=== PATIENT | male | born 1975 | race Hispanic/Latino ===

== ENCOUNTER 2018-07-24 10:59 | Inpatient (IN) | payer SELFPAY ==
[2018-07-24] MEDS ORDERED: NA CHLORIDE 0.9% 1,000 ML ONE ×2 (12:22→14:54)
[2018-07-24 12:29] LABS: Absolute Lymphocytes (CBC) 1.2 K/uL (0.7-4.9); Absolute Monocytes 0.6 K/uL (0.1-1.3); Absolute Neutrophil 4.9 K/uL (1.8-8.0); Basophils % 0.2 % (0-1.3); Eosinophils % 0.5 % (0-4.4); Hematocrit 45.6 % (39.6-49.0); Lymphocytes % 17.6 % (15.3-44.8); MPV 9.7 fL (7.6-11.3); Monocytes % 8.5 % (3.3-12.3); RBC Red Blood Cell Count 5.35 M/uL (4.33-5.43)
[2018-07-24 12:46] LABS: Potassium 3.4 mmol/L (3.5-5.1)
[2018-07-24 13:06] LABS: Arterial Blood Carboxyhemoglob 1.6 % (0-1.5); Blood Gas Oxyhemoglobin 94.5 % (94-97); Blood O2 Saturation 96.7 % (92-98.5)
--- NOTE | 2018-07-24 13:09 | EDPHYS ---
Physician Documentation [facility] Name: Sammy Kirkland Age: 42 yrs Sex: Male : 1975 Arrival Date: 07/24/2018 Time: 11:03 Bed 8 Private MD: ED Physician Manohar Young HPI: 07/24 14:08 This 42 yrs old Male presents to ER via Ambulatory with complaints of High gs Blood Pressure, High Blood Sugar. 14:08 The patient has elevated blood pressure and discovered this at home. Onset: The gs symptoms/episode began/occurred 1 month(s) ago. Modifying factors: The symptoms are aggravated by activity, The symptoms are alleviated by prescription meds. Associated signs and symptoms: Pertinent positives: palpitation and blood glucose high, stopped drinking about 1 week ago, Pertinent negatives: chest pain, dyspnea. Severity of symptoms: At its worst the blood pressure was severe, in the emergency department the blood pressure is improved, mildly. The patient has experienced similar episodes in the past, several times. The patient has been recently seen by a physician: the patient's primary care provider, 5 day(s) ago. Historical: - Allergies: 11:18 No Known Allergies; ss - PMHx: 11:18 Hypertension; Diabetes - NIDDM; ss - PSHx: 11:18 Appendectomy; ss - Immunization history:: Adult Immunizations up to date. - Social history:: Smoking status: Patient/guardian denies using tobacco. - Ebola Screening: : Patient denies exposure to infectious person Patient denies travel to an Ebola-affected area in the 21 days before illness onset. ROS: 14:08 All other systems are negative. gs Exam: 14:08 Head/Face: Normocephalic, atraumatic. Eyes: Pupils equal round and reactive to light, gs extra-ocular motions intact. Lids and lashes normal. Conjunctiva and sclera are non-icteric and not injected. Cornea within normal limits. Periorbital areas with no swelling, redness, or edema. ENT: Nares patent. No nasal discharge, no septal abnormalities noted. Tympanic membranes are normal and external auditory canals are clear. Oropharynx with no redness, swelling, or masses, exudates, or evidence of obstruction, uvula midline. Mucous membranes moist. Neck: Trachea midline, no thyromegaly or masses palpated, and no cervical lymphadenopathy. Supple, full range of motion without nuchal rigidity, or vertebral point tenderness. No Meningismus. Chest/axilla: Normal chest wall appearance and motion. Nontender with no deformity. No lesions are appreciated. Cardiovascular: Regular rate and rhythm with a normal S1 and S2. No gallops, murmurs, or rubs. Normal PMI, no JVD. No pulse deficits. Respiratory: Lungs have equal breath sounds bilaterally, clear to auscultation and percussion. No rales, rhonchi or wheezes noted. No increased work of breathing, no retractions or nasal flaring. Abdomen/GI: Soft, non-tender, with normal bowel sounds. No distension or tympany. No guarding or rebound. No evidence of tenderness throughout. Back: No spinal tenderness. No costovertebral tenderness. Full range of motion. Skin: Warm, dry with normal turgor. Normal color with no rashes, no lesions, and no evidence of cellulitis. MS/ Extremity: Pulses equal, no cyanosis. Neurovascular intact. Full, normal range of motion. Neuro: Awake and alert, GCS 15, oriented to person, place, time, and situation. Cranial nerves II-XII grossly intact. Motor strength 5/5 in all extremities. Sensory grossly intact. Cerebellar exam normal. Normal gait. 14:08 Constitutional: The patient appears alert, awake. 14:15 ECG was reviewed by the Attending Physician. Vital Signs: 11:18 BP 159 / 92; Pulse 96; Resp 20; Temp 98.4(O); Pulse Ox 99% on R/A; Weight 105.69 kg; ss Height 5 ft. 0 in. (152.40 cm); Pain 8/10; 12:00 BP 146 / 90; Pulse 84; Resp 16 S; Pulse Ox 97% on R/A; aa5 13:00 BP 144 / 95; Pulse 74; Resp 16 S; Pulse Ox 100% on R/A; aa5 14:10 BP 154 / 99; Pulse 83; Resp 18 S; Temp 98.0(TE); Pulse Ox 100% on R/A; aa5 15:20 BP 162 / 93; Pulse 83; Resp 18 S; Pulse Ox 100% on R/A; aa5 17:15 BP 143 / 83; Pulse 73; Resp 16 S; Temp 98.0(TE); Pulse Ox 98% on R/A; Pain 0/10; aa5 11:18 Body Mass Index 45.50 (105.69 kg, 152.40 cm) ss MDM: 12:03 Patient medically screened. gs 14:15 Differential diagnosis: hypertensive crisis, Malignant HTN, dka,aka,hyperglycemia. Data gs reviewed: vital signs, nurses notes, lab test result(s), EKG, radiologic studies. Counseling: I had a detailed discussion with the patient and/or guardian regarding: the historical points, exam findings, and any diagnostic results supporting the discharge/admit diagnosis, lab results, the need for further work-up and treatment in the hospital. Response to treatment: the patient's symptoms have mildly improved after treatment. 07/24 12:04 Order name: CBC with Diff; Complete Time: 14:08 07/24 12:04 Order name: Basic Metabolic Panel; Complete Time: 14:08 07/24 12:50 Order name: Urine Microscopic Only; Complete Time: 14:08 07/24 12:50 Order name: ABG; Complete Time: 14:08 07/24 13:50 Order name: Glucose, Ancillary Testing; Complete Time: 14:08 EDMS 07/24 13:51 Order name: Glucose, Ancillary Testing; Complete Time: 14:08 EDWA 07/24 11:25 Order name: EKG; Complete Time: 11:25 07/24 11:25 Order name: EKG - Nurse/Tech; Complete Time: 11:25 07/24 15:03 Order name: Glucose, Ancillary Testing; Complete Time: 15:20 EDMS 07/24 15:03 Order name: Glucose, Ancillary Testing; Complete Time: 15:20 EDMS 07/24 15:51 Order name: Glucose, Ancillary Testing; Complete Time: 16:05 EDMS 07/24 11:25 Order name: Glucose Level; Complete Time: 11:25 07/24 12:50 Order name: Urine Dipstick-Ancillary (obtain specimen); Complete Time: 13:40 gs EC:15 Rate is 84 beats/min. Rhythm is regular. NV interval is normal. QRS interval is gs prolonged. No Q waves. T waves are Flattened. No ST changes noted. Clinical impression: NSR w/ Non-specific ST/T Changes and Abnormal EKG without significant change. Interpreted by me. Administered Medications: 12:17 Drug: NS 0.9% 1000 ml Route: IV; Rate: 1 bolus; Site: right antecubital; aa5 14:00 Follow up: IV Status: Completed infusion; IV Intake: 1000ml aa5 14:00 Drug: Insulin Drip - (Insulin Regular Human 100 units, NS 0.9% 100 ml) {Co-Signature: aa5 iw (Savannah Celeste RN).} {Note: started at 5 units/hr per MD .} Route: IV; Rate: calculated rate; Site: right antecubital; 15:00 Follow up: Response: No adverse reaction aa5 17:20 Follow up: IV Status: Infusion continued upon admission aa5 14:46 Drug: NS 0.9% 1000 ml Route: IV; Rate: 1000 ml; Site: right antecubital; aa5 15:30 Follow up: IV Status: Completed infusion; IV Intake: 1000ml aa5 Point of Care Testing: Blood Glucose: 11:24 Blood Glucose: 403 mg/dL; ss 13:47 Blood Glucose: 385 mg/dL; em1 14:31 Blood Glucose: 326 mg/dL; aa5 14:58 Blood Glucose: 307 mg/dL; bp 15:48 Blood Glucose: 258 mg/dL; aa5 16:42 Blood Glucose: 256 mg/dL; aa5 Ranges: Critical Glucose Levels:Adult <50 mg/dl or >400 mg/dl <40 mg/dl or >180 mg/dl Disposition: 07/24/18 13:09 Hospitalization ordered by Mae Garcia for Inpatient Admission. Preliminary diagnosis is Type 1 diabetes mellitus with ketoacidosis. - Bed requested for Intensive Care Unit. - Status is Inpatient Admission. aa5 - Condition is Stable. - Problem is new. - Symptoms have improved. UTI on Admission? No Critical care time excluding procedures: 14:15 Critical care time: Bedside Care: 10 minutes, Consultation: 10 minutes, Family gs Intervention: 10 minutes. Total time: 30 minutes Signatures: Dispatcher [employer] EDGi Simental Audri, RN RN aa5 Karen Connors RN RN ss Starr, Gregory, MD MD gs Irene Williams RN iw Corrections: (The following items were deleted from the chart) 14:43 13:09 Hospitalization Ordered by Mae Garcia MD for Inpatient Admission. Preliminary bd diagnosis is Type 1 diabetes mellitus with ketoacidosis. Bed requested for Telemetry/MedSurg (Inpatient). Status is Inpatient Admission. Condition is Stable. Problem is new. Symptoms have improved. UTI on Admission? No. gs 17:29 14:43 07/24/2018 13:09 Hospitalization Ordered by Mae Garcia MD for Inpatient aa5 Admission. Preliminary diagnosis is Type 1 diabetes mellitus with ketoacidosis. Bed requested for Intensive Care Unit. Status is Inpatient Admission. Condition is Stable. Problem is new. Symptoms have improved. UTI on Admission? No. bd
--- NOTE | 2018-07-24 13:09 | ER ---
Nurse's Notes [facility] Name: Sammy Kirkland Age: 42 yrs Sex: Male : 1975 Arrival Date: 07/24/2018 Time: 11:03 Bed 8 Private MD: Diagnosis: Type 1 diabetes mellitus with ketoacidosis Presentation: 07/24 11:14 Presenting complaint: Patient states: generalized weakness and weight loss x 1.5 weeks, ss abd pain and heart pounding with exertion that began today. Pt was seen by a physician 4 days ago and was diagnosed with diabetes and hypertension. Pt reports he has not taken any of his newly prescribed medications because he just got them filled before coming to the ER. Also c/o excessive thirst. Transition of care: patient was not received from another setting of care. Onset of symptoms is unknown. Risk Assessment: Do you want to hurt yourself or someone else? Patient reports no desire to harm self or others. Initial Sepsis Screen: Does the patient meet any 2 criteria? No. Patient's initial sepsis screen is negative. Does the patient have a suspected source of infection? No. Patient's initial sepsis screen is negative. Care prior to arrival: None. 11:14 Method Of Arrival: Ambulatory ss 11:14 Acuity: RENEE 2 ss Historical: - Allergies: 11:18 No Known Allergies; ss - PMHx: 11:18 Hypertension; Diabetes - NIDDM; ss - PSHx: 11:18 Appendectomy; ss - Immunization history:: Adult Immunizations up to date. - Social history:: Smoking status: Patient/guardian denies using tobacco. - Ebola Screening: : Patient denies exposure to infectious person Patient denies travel to an Ebola-affected area in the 21 days before illness onset. Screenin:00 Abuse screen: Denies threats or abuse. Nutritional screening: No deficits noted. aa5 Tuberculosis screening: No symptoms or risk factors identified. Fall Risk None identified. Assessment: 12:00 General: Appears comfortable, Behavior is calm, cooperative. Pain: Denies pain. Neuro: aa5 Level of Consciousness is awake, alert, obeys commands, Oriented to person, place, time, situation, Advanced Solutions Architect are equal bilaterally Moves all extremities. Speech is normal, Facial symmetry appears normal, Pupils are PERRLA, Reports generalized weakness. . Cardiovascular: Heart tones S1 S2 present Rhythm is regular. Respiratory: Airway is patent Respiratory effort is even, unlabored, Respiratory pattern is regular, symmetrical, Breath sounds are clear bilaterally. GI: Abdomen is round Bowel sounds present X 4 quads. Abd is soft and non tender X 4 quads. Patient currently denies abdominal pain, nausea, vomiting. : No signs and/or symptoms were reported regarding the genitourinary system. EENT: Oral mucosa is moist. Derm: Skin is dry, Skin is normal, Skin temperature is warm. Musculoskeletal: Range of motion: intact in all extremities. 12:15 Reassessment: Pt notified of wait time for lab results. . aa5 14:00 Reassessment: Patient and/or family updated on plan of care and expected duration. Pain aa5 level reassessed. Awaiting room assignment . Neuro: Level of Consciousness is awake, alert, obeys commands, Oriented to person, place, time, situation. Respiratory: Airway is patent Respiratory effort is even, unlabored, Respiratory pattern is regular, symmetrical. Derm: Skin is dry, Skin is normal, Skin temperature is warm. 14:30 Reassessment: Dr. Garcia (Hospitalist) at bedside. . aa5 15:20 Reassessment: Patient and/or family updated on plan of care and expected duration. Pain aa5 level reassessed. Patient denies pain at this time. 15:45 Reassessment: Unsuccessful attempt to call report to ICU. aa5 16:40 Reassessment: Patient and/or family updated on plan of care and expected duration. Pain aa5 level reassessed. Neuro: Level of Consciousness is awake, alert, obeys commands, Oriented to person, place, time, situation. Respiratory: Airway is patent Respiratory effort is even, unlabored, Respiratory pattern is regular, symmetrical. Derm: Skin is dry, Skin is normal, Skin temperature is warm. 17:20 Neuro: Level of Consciousness is awake, alert, obeys commands, Oriented to person, aa5 place, time, situation. Respiratory: Airway is patent Respiratory effort is even, unlabored, Respiratory pattern is regular, symmetrical. Derm: Skin is dry, Skin is normal, Skin temperature is warm. Vital Signs: 11:18 BP 159 / 92; Pulse 96; Resp 20; Temp 98.4(O); Pulse Ox 99% on R/A; Weight 105.69 kg; ss Height 5 ft. 0 in. (152.40 cm); Pain 8/10; 12:00 BP 146 / 90; Pulse 84; Resp 16 S; Pulse Ox 97% on R/A; aa5 13:00 BP 144 / 95; Pulse 74; Resp 16 S; Pulse Ox 100% on R/A; aa5 14:10 BP 154 / 99; Pulse 83; Resp 18 S; Temp 98.0(TE); Pulse Ox 100% on R/A; aa5 15:20 BP 162 / 93; Pulse 83; Resp 18 S; Pulse Ox 100% on R/A; aa5 17:15 BP 143 / 83; Pulse 73; Resp 16 S; Temp 98.0(TE); Pulse Ox 98% on R/A; Pain 0/10; aa5 11:18 Body Mass Index 45.50 (105.69 kg, 152.40 cm) ED Course: 11:03 Patient arrived in ED. mr 11:17 Triage completed. ss 11:18 Arm band placed on right wrist. ss 11:23 EKG done, by bio medical technician. reviewed by Vince Richey MD. at1 11:52 Manohar Young MD is Attending Physician. gs 12:00 Patient has correct armband on for positive identification. Placed in gown. Bed in low aa5 position. Call light in reach. Side rails up X2. auto self service station attendant on. Pulse ox on. NIBP on. 12:06 Yeni Atikns, CORINA is Primary Nurse. aa5 12:15 Initial lab(s) drawn, by ky, sent to lab. Inserted saline lock: 20 gauge in right aa5 antecubital area, using aseptic technique. Blood collected. 12:15 No provider procedures requiring assistance completed. aa5 13:09 Mae Garcia MD is Hospitalizing Provider. gs 17:20 Patient admitted, IV remains in place. aa5 Administered Medications: 12:17 Drug: NS 0.9% 1000 ml Route: IV; Rate: 1 bolus; Site: right antecubital; aa5 14:00 Follow up: IV Status: Completed infusion; IV Intake: 1000ml aa5 14:00 Drug: Insulin Drip - (Insulin Regular Human 100 units, NS 0.9% 100 ml) {Co-Signature: aa5 iw (Savannah Celeste RN).} {Note: started at 5 units/hr per MD .} Route: IV; Rate: calculated rate; Site: right antecubital; 15:00 Follow up: Response: No adverse reaction aa5 17:20 Follow up: IV Status: Infusion continued upon admission aa5 14:46 Drug: NS 0.9% 1000 ml Route: IV; Rate: 1000 ml; Site: right antecubital; aa5 15:30 Follow up: IV Status: Completed infusion; IV Intake: 1000ml aa5 Point of Care Testing: Blood Glucose: 11:24 Blood Glucose: 403 mg/dL; ss 13:47 Blood Glucose: 385 mg/dL; em1 14:31 Blood Glucose: 326 mg/dL; aa5 14:58 Blood Glucose: 307 mg/dL; bp 15:48 Blood Glucose: 258 mg/dL; aa5 16:42 Blood Glucose: 256 mg/dL; aa5 Ranges: Intake: 14:00 IV: 1000ml; Total: 1000ml. aa5 15:30 IV: 1000ml; Total: 2000ml. aa5 Outcome: 13:09 Decision to Hospitalize by Provider. 17:20 Admitted to ICU accompanied by nurse, accompanied by tech, via stretcher, on monitor, aa5 with chart, Report called to CORINA [place] 17:20 Condition: stable 17:20 Instructed on the need for admit, Demonstrated understanding of instructions. 17:21 Patient left the ED. aa5 Signatures: Zeny Shaw, Rashawn em1 Yeni Atkins, RN RN aa5 Karen Connors RN RN Skylar Sanchez, mold yarn supervisor EKG Tat1 Manohar Young MD MD Carlos Amin RN RN bp Irene Williams RN iw Corrections: (The following items were deleted from the chart) 16:46 14:00 IV Status: Completed infusion aa5 aa5 17:31 17:29 Patient left the ED. aa5 aa5
[2018-07-24] MEDS: INSULIN -REGULAR HUMAN 100 UNIT in NA CHLORIDE 0.9% 100 ML IV ONE (13:30)
[2018-07-24 13:54] LABS: Urine Bacteria <20 /HPF (NONE SEEN); Urine Culture Reflex Order NOT NEEDED
--- NOTE | 2018-07-24 15:19 | EKG ---
Test Date: 2018-07-24 Test Time: 11:23:01 Lining Printer: CHERIE MEASUREMENT RESULTS: Intervals: Rate: 84 FL: 150 QRSD: 104 QT: 378 QTc: 446 Cost: P: 53 FL: 150 QRS: 47 T: 1 INTERPRETIVE STATEMENTS: Normal sinus rhythm Normal ECG No previous ECG available for comparison Electronically Signed On 07-24-18 15:18:16 CDT by Doroteo Mead
[2018-07-24] MEDS ORDERED: NA CHLORIDE 0.9% 1,000 ML IV ONE (17:05)
[2018-07-24] MEDS: NACHLORIDE 0.45% 1,000 ML IV SCH (17:05)
[2018-07-24] MEDS: FOLIC ACID 5 MG/ML VIAL IVP SCH (17:05)
[2018-07-24] MEDS ORDERED: ONDANSETRON 4 MG/2 ML VIAL IV PRN (17:05)
[2018-07-24] MEDS ORDERED: LORazepam 2 MG/ML VIAL IV PRN (17:05)
[2018-07-24] MEDS: D5 0.45 NS 1,000 ML IV SCH (18:15)
[2018-07-24] MEDS: THIAMINE 200 MG/2 ML INJ IVP SCH (18:19)
[2018-07-24 18:23] LABS: BUN Blood Urea Nitrogen 9 mg/dL (7-18); Bicarbonate 15 mmol/L (21-32); Glucose Level 221 mg/dL (74-106); Magnesium 2.1 mg/dL (1.8-2.4); Phosphorus 1.5 mg/dL (2.5-4.9); Sodium Level 138 mmol/L (136-145)
[2018-07-24 18:26] LABS: Potassium 2.9 mmol/L (3.5-5.1)
[2018-07-24 19:26] LABS: Urine Appearance CLEAR; Urine Bilirubin NEGATIVE (NEG); Urine Blood 1+ (NEG); Urine Color YELLOW; Urine Glucose 3+ (NEG); Urine Protein 1+ (NEG); Urine Urobilinogen 0.2 mg/dL (0.2-1.0); Urine pH 5.5 (5.0-7.0)
[2018-07-24 19:31] LABS: Urine Microscopic Reflex ORDER UMIC
[2018-07-24 19:41] LABS: Urine Bacteria <20 /HPF (NONE SEEN); Urine Culture Reflex Order NOT NEEDED; Urine Mucus 1+ /HPF (NONE SEEN); Urine RBC <5 /HPF (NONE SEEN)
[2018-07-24] MEDS ORDERED: POTASSIUM PHOS IN 0.9 % NACL 15 MMOL/250 ML BAG IV ONE (19:48)
--- NOTE | 2018-07-24 20:14 | HP ---
Date of Admission: 07/24/2018 Chief Complaint: Intractable nausea, vomiting, abdominal discomfort, elevated blood glucose levels. History Of Present Illness: The patient is a 42-year-old male with recently diagnosed diabetes, hype rtension, and hyperlipidemia, morbid obesity, who was in his usual state of health until several days prior to admission when the patient went to clinic in [place] and was found to be hypertensive, diab etic and have elevated cholesterol. The patient was given medications, however, there was a mixup at the pharmacy. His medications were then corrected, however, patient has not been able to take any o f his medications. He was started on glipizide, amlodipine and lisinopril. The patient reports weig ht loss of 20 pounds over the past 2 weeks. The patient is also a heavy drinker and stopped drinking approximately 10 days ago. He has been having intractable nausea, vomiting, unable to tolerate any p.o. intake, lightheadedness, polyuria, polydipsia. The patient went to the pharmacy today to pick u p his medications and was told to go to the ER due to his symptoms. In the ER, his blood glucose lev el was 403, his creatinine was elevated at 1.3, white count was normal. The patient's ABG showed aci dosis with a pH of 7.22, pCO2 was 22. His anion gap was elevated at 21. The patient was thought to be in alcohol acute acidosis. He was started on IV insulin and referred for admission. He was given 1 L bolus normal saline. When seen in the ER, he was awake, alert, oriented x3, in some mild distre ss. Past Medical History: Recently diagnosed diabetes, hypertension, hyperlipidemia, morbid obesity. Surgical History: Appendectomy. Allergies: NO KNOWN DRUG ALLERGIES. Social History: The patient denies any tobacco use. Reports heavy alcohol use, used to drink three 16 ounce beer cans every day and on the weekends would drink an 18 pack. The patient has been drinki ng for several years at this level. He stated he stopped drinking approximately 10 days ago, went th rough some withdrawal symptoms. The patient works in construction. Family History: Positive for diabetes. Review of Systems: Ten-point system reviewed, negative except as per HPI. Physical Examination: Vital Signs: Temperature 98.4, blood pressure 129/92, pulse 96, respirations 20, O2 99% on room air. BMI 45. HEENT: Normocephalic, atraumatic. PERRLA. EOMI. Dry mucous membranes. Oropharynx is clear. Poor dentition. Conjunctivae anicteric. Neck: Supple. No JVD. Trachea midline. CV: S1, S2. Regular rate and rhythm. Peripheral pulses present. Respiratory: Moving air well bilaterally. No wheezing or stridor. No use of accessory muscles. Gastrointestinal: Abdomen is soft, nontender, nondistended. Positive bowel sounds. No guarding or rigidity. Extremities: No clubbing, cyanosis, or edema. No calf tenderness. Neuro: Cranial nerves 2-12 intact grossly. No focal neurological deficit. Speech is normal. Skin: Normal skin turgor. No rashes. Psych: Mood is anxious. Affect is congruent with mood. Insight and judgment are fair. Laboratory Data: Sodium 133, potassium 3.4, chloride 101, CO2 11, BUN 12, creatinine 1.39, glucose 4 43, calcium 8.5. WBC 6.7, H and H 16.1 and 45.6, platelets 247. ABG; pH 7.22, pCO2 22.9, pO2 97.5, bicarb 99.1. UA is pending. Microscopy shows 5-10 rbc's, wbc less than 5, less than 20 bacteria. E KG shows normal sinus rhythm rate of 84, no previous EKG for comparison. Assessment: A 42-year-old male with: 1.Alcoholic ketoacidosis. We will continue on IV insulin. We will give 1 L of normal saline bolus and start on maintenance IV fluids after that. The patient has been counseled. 2.Diabetes mellitus type 2, [id number] with hyperglycemia, currently on IV insulin. [facility] blood glucose levels. The patient has been counseled. The patient will need diabetic education. 3.Essential hypertension, not well controlled. We will start on IV medications until the patient is able to tolerate p.o. intake. 4.Non-intractable nausea, vomiting. Continue antiemetics. 5.Mixed hyperlipidemia. We will check lipid panel. We will resume statin once tolerating p.o. 6.Morbid obesity. 7.Deep vein thrombosis prophylaxis with Lovenox. 8.Acute kidney injury. We will continue with IV fluids and monitor kidney function. Plan: Admit patient to ICU, place as inpatient. Length of stay greater than 2 midnights. MICHAEL Voice ID: [id number]
[2018-07-24 21:41] LABS: Potassium 2.6 mmol/L (3.5-5.1)
[2018-07-25] MEDS: NACHLORIDE 0.45% 1,000 ML IV SCH ×2 (01:05→09:05)
[2018-07-25] MEDS ORDERED: NA CHLORIDE 0.9% 100 ML ONE (01:27)
[2018-07-25] MEDS ORDERED: INSULIN -REGULAR HUMAN 50 UNIT/0.5 ML ML ONE (01:27)
[2018-07-25 01:47] LABS: Potassium 2.5 mmol/L (3.5-5.1)
[2018-07-25] MEDS: KCL 20 MEQ/100 mL IVPB 20 MEQ/100 ML BAG IV SCH ×2 (02:15→04:00)
[2018-07-25] MEDS: D5 0.45 NS 1,000 ML IV SCH ×2 (02:55→08:16)
[2018-07-25] MEDS: INSULIN -REGULAR HUMAN 100 UNIT in NA CHLORIDE 0.9% 100 ML IV ONE (02:59)
[2018-07-25 05:49] LABS: Absolute Lymphocytes (CBC) 1.6 K/uL (0.7-4.9); Absolute Monocytes 0.8 K/uL (0.1-1.3); Absolute Neutrophil 4.5 K/uL (1.8-8.0); Basophils % 0.3 % (0-1.3); Eosinophils % 2.7 % (0-4.4); Hematocrit 41.9 % (39.6-49.0); Lymphocytes % 22.3 % (15.3-44.8); MPV 9.7 fL (7.6-11.3); Monocytes % 11.1 % (3.3-12.3); RBC Red Blood Cell Count 4.98 M/uL (4.33-5.43)
[2018-07-25 08:37] LABS: BUN Blood Urea Nitrogen 8 mg/dL (7-18); Bicarbonate 22 mmol/L (21-32); Glucose Level 170 mg/dL (74-106); Phosphorus 2.3 mg/dL (2.5-4.9); Potassium 3.2 mmol/L (3.5-5.1); Sodium Level 139 mmol/L (136-145)
[2018-07-25] MEDS ORDERED: PNEUMOCOCCAL VACCINE 0.5 ML IMVAC ONE (09:00)
[2018-07-25] MEDS ORDERED: POTASSIUM PHOS IN 0.9 % NACL 15 MMOL/250 ML BAG IV ONE (09:09)
[2018-07-25] MEDS: THIAMINE 200 MG/2 ML INJ IVP SCH (09:22)
[2018-07-25] MEDS ORDERED: INSULIN GLARGINE 100 UNITS/ML SQ ONE ×2 (12:00→18:00)
[2018-07-25] MEDS: FOLIC ACID 5 MG/ML VIAL IVP SCH (12:47)
[2018-07-25] MEDS ORDERED: POTASSIUM CL SA 10 MEQ TAB PO ONE (13:14)
--- NOTE | 2018-07-25 15:25 | P.PN ---
Subjective Date of Service: 07/25/18 Subjective: Improving Patient seen and examined at bedside. No family at bedside. Chart reviewed and case discussed with nursing staff. Patient reports improvement. Gap has now closed at 10. He is currently on 6 units insulin drip, D5 and half fluid. His blood sugars have improved to 200s. He reports clinical improvement. As any nausea or vomiting at this time, denies any chest pain, shortness of breath, headache, vision changes, dizziness , other GI or complaints. Review of Systems 10-point ROS is otherwise unremarkable Physical Examination - Vital Signs Temperature: 97.1 F Blood Pressure: 117/75 Pulse: 78 Respirations: 23 Pulse Ox (%): 100 - Physical Exam General: Alert, In no apparent distress, Oriented x3 HEENT: Atraumatic, PERRLA, EOMI Neck: Supple, JVD not distended Respiratory: Clear to auscultation bilaterally, Normal air movement Cardiovascular: Regular rate/rhythm, Normal S1 S2 Gastrointestinal: Normal bowel sounds, No tenderness Musculoskeletal: No tenderness Integumentary: No rashes Neurological: Normal speech, Normal tone, Normal affect Lymphatics: No axilla or inguinal lymphadenopathy Assessment And Plan - Current Problems (Diagnosis) (1) Alcoholic ketoacidosis Current Visit: Yes Status: Acute Plan: Transition patient from IV insulin 2 subcutaneous insulin. We will start Lantus 10 units with moderate sliding scale insulin. After 1 hr, DC insulin and IV fluids. Start on 1800 diabetic diet. We will continue to monitor blood glucose levels. (2) Diabetes mellitus Current Visit: Yes Status: Acute Plan: Continue plan as above. Continue to monitor blood glucose level. He will need diabetic education in resources prior to discharge. Qualifiers: Diabetes mellitus type: type 2 Diabetes mellitus chcf insulin use: without chcf use Diabetes mellitus complication status: with hyperglycemia Qualified Code(s): E11.65 - Type 2 diabetes mellitus with hyperglycemia (3) Nausea & vomiting Current Visit: Yes Status: Acute Plan: We will continue anti emetics as needed. Qualifiers: Vomiting type: unspecified Vomiting Intractability: non-intractable Qualified Code(s): R11.2 - Nausea with vomiting, unspecified (4) HTN (hypertension) Current Visit: Yes Status: Chronic Plan: Better control. We will add oral blood pressure medications once he is stable and tolerate p.o. Qualifiers: Hypertension type: essential hypertension Qualified Code(s): I10 - Essential (primary) hypertension (5) Morbid obesity with BMI of 40.0-44.9, adult Current Visit: Yes Status: Chronic (6) Hyperlipidemia Current Visit: Yes Status: Acute Plan: Continue statin Qualifiers: Hyperlipidemia type: mixed hyperlipidemia Qualified Code(s): E78.2 - Mixed hyperlipidemia (7) JULIANE (acute kidney injury) Current Visit: Yes Status: Resolved Plan: Resolved with IV fluids. Continue to monitor (8) Hypokalemia Current Visit: Yes Status: Acute Plan: Replace and monitor per protocol. - Plan DVT prophylaxis: Lovenox, encouraged ambulation GI prophylaxis: None Diet: 1800 diabetic Disposition: Continue to monitor in ICU. Transition from IV insulin, per protocol. Continue to monitor blood glucose. If stable overnight, will transfer to the floor tomorrow
[2018-07-25] MEDS: INSULIN -REGULAR HUMAN 50 UNIT/0.5 ML ML SQ SCH ×2 (16:33→20:52)
[2018-07-25 17:31] LABS: Potassium 3.1 mmol/L (3.5-5.1)
[2018-07-25] MEDS ORDERED: GLUCAGON 1 MG/VIAL IM PRN (17:51)
[2018-07-25] MEDS ORDERED: D50W 25 GM/50 ML SYRINGE IV PRN (17:51)
[2018-07-25 21:04] LABS: Potassium 3.3 mmol/L (3.5-5.1)
[2018-07-26 05:11] LABS: Absolute Lymphocytes (CBC) 1.4 K/uL (0.7-4.9); Absolute Monocytes 0.5 K/uL (0.1-1.3); Absolute Neutrophil 2.8 K/uL (1.8-8.0); Basophils % 0.2 % (0-1.3); Eosinophils % 2.8 % (0-4.4); Hematocrit 43.5 % (39.6-49.0); Lymphocytes % 29.1 % (15.3-44.8); MPV 9.8 fL (7.6-11.3); Monocytes % 10.5 % (3.3-12.3); RBC Red Blood Cell Count 5.14 M/uL (4.33-5.43)
[2018-07-26 07:44] LABS: BUN Blood Urea Nitrogen 9 mg/dL (7-18); Bicarbonate 20 mmol/L (21-32); Glucose Level 330 mg/dL (74-106); Sodium Level 138 mmol/L (136-145)
[2018-07-26] MEDS: INSULIN -REGULAR HUMAN 50 UNIT/0.5 ML ML SQ SCH ×3 (07:47→16:30)
[2018-07-26] MEDS: INSULIN GLARGINE 100 UNITS/ML SQ SCH ×2 (07:47→16:30)
[2018-07-26] MEDS ORDERED: POTASSIUM 25 MEQ EFFERV TAB PO ONE (08:42)
[2018-07-26] MEDS: FOLIC ACID 1 MG TABLET PO SCH (08:53)
[2018-07-26] MEDS: THIAMINE HCL 100 MG TABLET PO SCH (08:53)
[2018-07-26 10:47] LABS: Potassium 4.2 mmol/L (3.5-5.1)
--- NOTE | 2018-07-26 12:53 | P.PN ---
Subjective Date of Service: 07/26/18 Chief Complaint: Ketoacidosis Subjective: Tolerating diet, Improving Patient seen and examined at bedside. No family at bedside. Chart reviewed and case discussed with nursing staff. Patient reports improvement. He reports clinical improvement. Tolerating diet. Denies any nausea or vomiting at this time, denies any chest pain, shortness of breath, headache, vision changes, dizziness, other GI or complaints. Review of Systems 10-point ROS is otherwise unremarkable Physical Examination - Vital Signs Temperature: 97.7 F Blood Pressure: 123/86 Pulse: 90 Respirations: 22 Pulse Ox (%): 100 - Physical Exam General: Alert, In no apparent distress, Oriented x3 HEENT: Atraumatic, PERRLA, EOMI Neck: Supple, JVD not distended Respiratory: Clear to auscultation bilaterally, Normal air movement Cardiovascular: Regular rate/rhythm, Normal S1 S2 Gastrointestinal: Normal bowel sounds, No tenderness Musculoskeletal: No tenderness Integumentary: No rashes Neurological: Normal speech, Normal tone, Normal affect Lymphatics: No axilla or inguinal lymphadenopathy Assessment And Plan - Current Problems (Diagnosis) (1) Alcoholic ketoacidosis Current Visit: Yes Status: Acute Plan: Patient currently transition from IV insulin subcutaneous. Gap at borderline, 13. be Currently receiving Lantus 15 units twice a day. Blood sugars continue to be elevated. We will give 1 time Lantus 5 units at this time, increase Lantus to 20 units b.i.d. Repeat BMP q.4 hr We will continue to monitor blood glucose levels. (2) Diabetes mellitus Current Visit: Yes Status: Acute Plan: Continue plan as above. Continue to monitor blood glucose level. He will need diabetic education in resources prior to discharge. 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 Qualifiers: Vomiting type: unspecified Vomiting Intractability: non-intractable Qualified Code(s): R11.2 - Nausea with vomiting, unspecified (4) HTN (hypertension) Current Visit: Yes Status: Chronic Plan: Better controlled now. We will add oral blood pressure medications if needed Qualifiers: Hypertension type: essential hypertension Qualified Code(s): I10 - Essential (primary) hypertension (5) Morbid obesity with BMI of 40.0-44.9, adult Current Visit: Yes Status: Chronic (6) Hyperlipidemia Current Visit: Yes Status: Acute Plan: Continue statin Qualifiers: Hyperlipidemia type: mixed hyperlipidemia Qualified Code(s): E78.2 - Mixed hyperlipidemia (7) JULIANE (acute kidney injury) Current Visit: Yes Status: Resolved Plan: Resolved with IV fluids. Continue to monitor (8) Hypokalemia Current Visit: Yes Status: Resolved Plan: Replace and monitor per protocol. - Plan DVT prophylaxis: Lovenox, encouraged ambulation GI prophylaxis: None Diet: 1800 diabetic Disposition: Continue to monitor in ICU. Blood work recheck this afternoon. We will continue to monitor the gap as it continues to be elevated at this time.
[2018-07-26 16:03] LABS: BUN Blood Urea Nitrogen 9 mg/dL (7-18); Bicarbonate 22 mmol/L (21-32); Glucose Level 360 mg/dL (74-106); Potassium 3.5 mmol/L (3.5-5.1); Sodium Level 140 mmol/L (136-145)
[2018-07-26] MEDS ORDERED: D50W 25 GM/50 ML SYRINGE IV PRN (17:17)
[2018-07-26] MEDS ORDERED: INSULIN -REGULAR HUMAN 50 UNIT/0.5 ML ML IV SCH (17:30)
[2018-07-26] MEDS ORDERED: INSULIN -REGULAR HUMAN 100 UNIT in NA CHLORIDE 0.9% 100 ML IV SCH (17:45)
[2018-07-26] MEDS: D5.45NS W/KCL 20MEQ 1,000 ML IV SCH ×2 (18:00→22:15)
[2018-07-26] MEDS: NACHLORIDE 0.45% 1,000 ML with POTASSIUM CL 20 MEQ IV SCH ×2 (18:04)
[2018-07-26 22:27] LABS: BUN Blood Urea Nitrogen 8 mg/dL (7-18); Bicarbonate 26 mmol/L (21-32); Glucose Level 176 mg/dL (74-106); Potassium 3.1 mmol/L (3.5-5.1); Sodium Level 141 mmol/L (136-145)
[2018-07-27] MEDS ORDERED: POTASSIUM CL SA 10 MEQ TAB PO ONE ×2 (01:43→19:33)
[2018-07-27 05:12] LABS: Absolute Lymphocytes (CBC) 1.8 K/uL (0.7-4.9); Absolute Monocytes 0.7 K/uL (0.1-1.3); Absolute Neutrophil 3.3 K/uL (1.8-8.0); Basophils % 0.2 % (0-1.3); Eosinophils % 2.5 % (0-4.4); Hematocrit 42.7 % (39.6-49.0); Lymphocytes % 30.1 % (15.3-44.8); MPV 9.5 fL (7.6-11.3); Monocytes % 11.4 % (3.3-12.3)
[2018-07-27] MEDS: D5.45NS W/KCL 20MEQ 1,000 ML IV SCH ×2 (05:15→14:00)
[2018-07-27 05:28] LABS: BUN Blood Urea Nitrogen 8 mg/dL (7-18); Bicarbonate 27 mmol/L (21-32); Glucose Level 197 mg/dL (74-106); Phosphorus 3.1 mg/dL (2.5-4.9); Potassium 3.1 mmol/L (3.5-5.1); Sodium Level 141 mmol/L (136-145)
[2018-07-27] MEDS: THIAMINE HCL 100 MG TABLET PO SCH (08:32)
[2018-07-27] MEDS: FOLIC ACID 1 MG TABLET PO SCH (08:32)
[2018-07-27] MEDS ORDERED: INSULIN GLARGINE 100 UNITS/ML SQ ONE (10:17)
[2018-07-27] MEDS: INSULIN GLARGINE 100 UNITS/ML SQ SCH ×2 (12:45→21:21)
--- NOTE | 2018-07-27 12:49 | P.PN ---
Subjective Date of Service: 07/27/18 Chief Complaint: Ketoacidosis Subjective: No C/O voiced, Improving Patient seen and examined at bedside. No family at bedside. Chart reviewed and case discussed with nursing staff. He reports clinical improvement. Tolerating diet. Denies any nausea or vomiting at this time, denies any chest pain, shortness of breath, headache, vision changes, dizziness, other GI or complaints. Review of Systems 10-point ROS is otherwise unremarkable Physical Examination - Vital Signs Temperature: 97.4 F Blood Pressure: 144/90 Pulse: 71 Respirations: 12 Pulse Ox (%): 98 - Physical Exam General: Alert, In no apparent distress, Oriented x3 HEENT: Atraumatic, PERRLA, EOMI Neck: Supple, JVD not distended Respiratory: Clear to auscultation bilaterally, Normal air movement Cardiovascular: Regular rate/rhythm, Normal S1 S2 Gastrointestinal: Normal bowel sounds, No tenderness Musculoskeletal: No tenderness Integumentary: No rashes Neurological: Normal speech, Normal tone, Normal affect Lymphatics: No axilla or inguinal lymphadenopathy Assessment And Plan - Current Problems (Diagnosis) (1) Alcoholic ketoacidosis Current Visit: Yes Status: Acute Plan: Patient was transitioned from IV insulin to subcutaneous. The gap Re opened at 16. He was restarted on insulin drip and his BMP was checked every 4 hr. The most recent BMP with a gap of 8, closed and negative acetone levels. Blood sugars better controlled between 100-200. We will be attempted to transition patient to subcutaneous insulin. Give Lantus 20 units, turn off insulin drip after 1 hr. Continue to monitor blood sugars. BMP check-in 4 hr. (2) Diabetes mellitus Current Visit: Yes Status: Acute Plan: Continue plan as above. Continue to monitor blood glucose level. He will need diabetic education in resources prior to discharge. Qualifiers: Diabetes mellitus type: type 2 Diabetes mellitus [facility] insulin use: without intermission coordinator use Diabetes mellitus complication status: with hyperglycemia Qualified Code(s): E11.65 - Type 2 diabetes mellitus with hyperglycemia (3) Nausea & vomiting Current Visit: Yes Status: Resolved Plan: We will continue anti emetics as needed. Qualifiers: Vomiting type: unspecified Vomiting Intractability: non-intractable Qualified Code(s): R11.2 - Nausea with vomiting, unspecified (4) HTN (hypertension) Current Visit: Yes Status: Chronic Plan: Better controlled now. We will add oral blood pressure medications if needed Qualifiers: Hypertension type: essential hypertension Qualified Code(s): I10 - Essential (primary) hypertension (5) Morbid obesity with BMI of 40.0-44.9, adult Current Visit: Yes Status: Chronic (6) Hyperlipidemia Current Visit: Yes Status: Acute Plan: Continue statin Qualifiers: Hyperlipidemia type: mixed hyperlipidemia Qualified Code(s): E78.2 - Mixed hyperlipidemia (7) JULIANE (acute kidney injury) Current Visit: Yes Status: Resolved Plan: Resolved with IV fluids. Continue to monitor (8) Hypokalemia Current Visit: Yes Status: Resolved Plan: Replace and monitor per protocol. - Plan DVT prophylaxis: Lovenox, encouraged ambulation GI prophylaxis: None Diet: 1800 diabetic Disposition: Continue to monitor in ICU. Blood work recheck this afternoon. Will transfer to the floor if gap remains closed.
[2018-07-27] MEDS: INSULIN -REGULAR HUMAN 50 UNIT/0.5 ML ML SQ SCH ×2 (16:18→21:20)
[2018-07-27] MEDS ORDERED: POTASSIUM 25 MEQ EFFERV TAB PO ONE (17:00)
[2018-07-27] MEDS: NACHLORIDE 0.45% 1,000 ML with POTASSIUM CL 20 MEQ IV SCH ×4 (18:18→22:21)
[2018-07-27 18:58] LABS: BUN Blood Urea Nitrogen 8 mg/dL (7-18); Bicarbonate 27 mmol/L (21-32); Glucose Level 314 mg/dL (74-106); Potassium 3.7 mmol/L (3.5-5.1); Sodium Level 137 mmol/L (136-145)
[2018-07-28] MEDS: NACHLORIDE 0.45% 1,000 ML with POTASSIUM CL 20 MEQ IV SCH ×2 (02:24)
[2018-07-28 05:44] LABS: BUN Blood Urea Nitrogen 10 mg/dL (7-18); Bicarbonate 27 mmol/L (21-32); Glucose Level 260 mg/dL (74-106); Phosphorus 3.5 mg/dL (2.5-4.9); Potassium 3.1 mmol/L (3.5-5.1); Sodium Level 138 mmol/L (136-145)
[2018-07-28] MEDS ORDERED: POTASSIUM CL SA 10 MEQ TAB PO ONE (06:18)
[2018-07-28] MEDS: THIAMINE HCL 100 MG TABLET PO SCH (08:15)
[2018-07-28] MEDS: FOLIC ACID 1 MG TABLET PO SCH (08:15)
[2018-07-28] MEDS: INSULIN -REGULAR HUMAN 50 UNIT/0.5 ML ML SQ SCH ×2 (08:15→12:09)
[2018-07-28] MEDS: INSULIN GLARGINE 100 UNITS/ML SQ SCH (08:16)
--- NOTE | 2018-07-28 13:19 | P.DS ---
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 Diabetes mellitus complication status: with hyperglycemia Qualified Code(s): E11.65 - Type 2 diabetes mellitus with hyperglycemia (3) Nausea & vomiting Current Visit: Yes Status: Resolved Qualifiers: Vomiting type: unspecified Vomiting Intractability: non-intractable Qualified Code(s): R11.2 - Nausea with vomiting, unspecified (4) HTN (hypertension) Current Visit: Yes Status: Chronic Qualifiers: Hypertension type: essential hypertension Qualified Code(s): I10 - Essential (primary) hypertension (5) Morbid obesity with BMI of 40.0-44.9, adult Current Visit: Yes Status: Chronic (6) Hyperlipidemia Current Visit: Yes Status: Acute Qualifiers: Hyperlipidemia type: mixed hyperlipidemia Qualified Code(s): E78.2 - Mixed hyperlipidemia (7) JULIANE (acute kidney injury) Current Visit: Yes Status: Resolved (8) Hypokalemia Current Visit: Yes Status: Resolved Brief History of Present Illness: The patient is a 42-year-old male with recently diagnosed diabetes, hypertension , and hyperlipidemia, morbid obesity, who was in his usual state of health until several days prior to admission when the patient went to clinic in [place] and was found to be hypertensive, diabetic and have elevated cholesterol. The patient was given medications, however, there was a mixup at the pharmacy. His medications were then corrected, however, patient has not been able to take any of his medications. He was started on glipizide, amlodipine and lisinopril. The patient reports weight loss of 20 pounds over the past 2 weeks. The patient is also a heavy drinker and stopped drinking approximately 10 days ago. He has been having intractable nausea, vomiting, unable to tolerate any p.o. intake, lightheadedness, polyuria, polydipsia. 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 In the ER, his blood glucose level was 403, his creatinine was elevated at 1.3, white count was normal. The patient's ABG showed acidosis with a pH of 7.22, pCO2 was 22. His anion gap was elevated at 21. The patient was thought to be in alcohol acute acidosis. He was started on IV insulin and referred for admission. He was given 1 L bolus normal saline. When seen in the ER, he was awake, alert, oriented x3, in some mild distress. Hospital Course: Patient was admitted for alcoholic ketoacidosis and newly diagnosed diabetes mellitus type 2. He was admitted to the ICU, started on IV insulin, started on IV fluids. His electrolytes were repleted and monitored every 4 hr. His blood sugars did improve. His acetone level became negative. His gap closed and he was then transitioned to subcutaneous insulin. His CT did reveal breath 16. He was again restarted on insulin drip as BMP/electrolytes were checked every 4 hr repleted monitored. His gap remained closed and he was again transitioned to subcutaneous insulin. His gap continue to remain closed, electrolytes remained stable. His blood sugars remained stable, though still elevated. Patient really wanted to go home, stated that he is going to take care of himself a follow up with primary care physician. He was extensively counseled on lifestyle modifications, diet. He was educated on blood sugar checks, insulin. Social work was consulted to provide diabetes resources to the patient. His blood pressure continued to be elevated, he was supposed to be on amlodipine and lisinopril. Patient had picked up the medications prior to admission, was not taking them. Prior to discharge, he was alert oriented x3, in no acute distress and hemodynamically stable. His blood sugars were stable though elevated. He was instructed to continue taking any insulin 20 units twice a day. He will also continue the glimepiride that was prescribed to him prior to this admission. He does have a prescription already but had not started taking it. He will also start to take the amlodipine and lisinopril that were prescribed prior to admission. He will follow up with primary care physician in 2-3 days. His primary care is in [place]. His treatment plan and diagnosis were explained to him. All questions were answered and patient verbalized understanding. He understands importance of medication compliance, lifestyle modifications. He understands the sequelae and risks that could be from diabetes. He was also counseled on alcohol cessation. Vital Signs/Physical Exam: Temp Pulse Resp BP Pulse Ox 97.6 F 84 20 131/87 97 07/28/18 04:00 07/28/18 12:00 07/28/18 12:00 07/28/18 12:00 07/28/18 02:00 General: Alert, In no apparent distress, Oriented x3 HEENT: Atraumatic, PERRLA, EOMI Neck: Supple, JVD not distended Respiratory: Clear to auscultation bilaterally, Normal air movement Cardiovascular: Regular rate/rhythm, Normal S1 S2 Gastrointestinal: Normal bowel sounds, No tenderness Musculoskeletal: No tenderness Integumentary: No rashes Neurological: Normal speech, Normal tone, Normal affect Lymphatics: No axilla or inguinal lymphadenopathy Laboratory Data at Discharge: WBC 5.8 K/uL (4.3-10.9) D 07/27/18 04:50 Hgb 15.2 g/dL (13.6-17.9) 07/27/18 04:50 Hct 42.7 % (39.6-49.0) 07/27/18 04:50 Plt Count 195 K/uL (152-406) 07/27/18 04:50 Sodium 138 mmol/L (136-145) 07/28/18 04:47 Potassium 3.1 mmol/L (3.5-5.1) L 07/28/18 04:47 BUN 10 mg/dL (7-18) 07/28/18 04:47 Creatinine 0.82 mg/dL (0.55-1.3) 07/28/18 04:47 Glucose 260 mg/dL (74-106) H 07/28/18 04:47 Phosphorus 3.5 mg/dL (2.5-4.9) 07/28/18 04:47 Magnesium 2.0 mg/dL (1.8-2.4) 07/28/18 04:47 Triglycerides 121 mg/dL (<150) 07/25/18 05:05 Cholesterol 188 mg/dL (<200) 07/25/18 05:05 HDL Cholesterol 48 mg/dL (40-60) 07/25/18 05:05 Cholesterol/HDL Ratio 3.92 07/25/18 05:05 Home Medications: Insulin Glargine Human [Lantus*] 20 units SQ BID #1 vial 07/28/18 New Medications: Insulin Glargine Human [Lantus*] 20 units SQ BID #1 vial Patient Discharge Instructions: Please follow up with the primary care physician in 2-3 days. Return to the emergency room for worsening symptoms. Please continue insulin, glimiperide, lisinopril and amlodipine as prescribed Diet: ADA Activity: Ad theresa Time spent managing pt's care (in minutes): 55
== END 2018-07-28 13:45 | disposition home or self-care (01) | DRG 638 ==
LOC: ER 10:59 → ERHOLD 13:51 → 3RD-ICU 17:08
PROVIDERS: ADMIT Family Medicine; ATTEND Family Medicine
DX: E09.10 Drug or chemical induced diabetes mellitus with ketoacidosis without coma (principal); Z68.41 Body mass index [BMI] 40.0-44.9, adult; N17.9 Acute kidney failure, unspecified; I10 Essential (primary) hypertension; E78.5 Hyperlipidemia, unspecified; E66.01 Morbid (severe) obesity due to excess calories; E87.6 Hypokalemia
CPT/HCPCS: 36415; 80048; 80061; 81003; 81015; 82010; 82805; 82962; 83036; 83735; 84100; 85025; 87086; 87088; 93005; 96361; 96365; 96366; 96367; 99285; J3411; J7030